=== PATIENT | male | born 1950 | race American Indian/Alaskan Native ===

== ENCOUNTER → 2025-04-26 | Outpatient (CLI) | payer MEDICARE, SELFPAY ==
--- NOTE | 2025-04-26 13:40 | XR_ITS ---
Examination: CT abdomen without intravenous contrast. Coronal 2-D reconstructions. Sagittal 2-D reconstructions. Date and time of exam:April 26, 2025 1527 hours Comparison July 31, 2021 INDICATIONS: Left lower abdominal pain beginning 2 months ago CTDI: vol (mGy): 8.46 DLP: (mGycm): 390 Technique: Axial images of the abdomen have been obtained, 3 mm slice thickness, without intravenous contrast 2-D sagittal coronal reconstructions Low dose protocols were performed. One or more of the following dose reduction techniques were used; automated exposure control, adjustment of the mA and/or KV according to patient size, use of iterative reconstruction technique. Findings: No focal liver lesion or biliary tract dilatation Absent gallbladder Normal common hepatic common bile duct No pancreatic mass or peripancreatic edema Normal adrenal glands Perinephric stranding, a nonspecific pattern No renal or ureteral calculi, no hydronephrosis Small bowel loops are mildly distended No bowel obstruction No pericecal inflammatory change The appendix appears normal Colonic diverticulosis Severe osteopenia IMPRESSION: Perinephric stranding, which can be seen with urinary tract infection Mildly fluid distended small bowel loops, differential would include ileus, enteritis such as Crohn's disease, clinical correlation advised
== END | disposition home or self-care (01) ==
LOC: CDIM 13:22
PROVIDERS: PCP Family Medicine; Referring Provider Family Medicine; Visit Provider Family Medicine
DX: K63.89 Other specified diseases of intestine (principal)
CPT/HCPCS: 74150